=== PATIENT | male | born 1995 ===

== ENCOUNTER 2024-11-03 19:18 | Emergency (ER) | payer OTHER ==
[~2024-11-03] VITALS: Ht 188 cm; Wt 81.0 kg
[2024-11-03 19:27] VITALS: BP 149/104; PULSE 104; RESP 26; O2SAT 100
--- NOTE | 2024-11-03 20:51 | Physician Documentation ---
History of Present Illness ~ Chief Complaint: Anxiety Stated Complaint: SOB Time Seen by MD: 19:34 HPI Patient is seen today with complaints of significant anxiety. Patient states he ate some edible marijuana a couple of hours prior to arrival. Patient has no other concern or complaint at this time. Patient denies any chest pain or shortness of breath or abdominal pain or nausea, vomiting, diarrhea. Medication Reconciliation Allergies: Coded Allergies: No Known Allergies (Unverified , 11/03/24) Review of Systems Constitutional: Denies: chills, fever, weakness Eyes: Denies: pain, blurred vision ENT: Denies: ear pain, nose pain, throat pain, mouth pain Respiratory: Denies: cough, shortness of breath Cardiovascular: Denies: chest pain, palpitations Gastrointestinal: Denies: abdominal pain, nausea, vomiting Genitourinary: Denies: burning, dysuria Male Genitalia: Denies: penile discharge, testicular pain Neurological: Denies: headache, dizziness Musculoskeletal: Denies: pain, swelling Integumentary: Denies: rash, lesions Allergic/Immunologic: Denies: hives, itching Hematologic/Lymphatic: Denies: no symptoms reported Psychiatric: Denies: depression, anxiety Physical Exam Vital Signs: Heart Rate: 104, Respiratory Rate: 26, BP: 149/104, Pulse Oximetry: 100, Weight: 81.000 Physical Exam General: Awake and Alert, no acute distress. HEENT: Conjunctiva pink, Sclera clear, Mucus Membranes moist. Neck: Supple without masses and tenderness. Resp: Unlabored. Lungs clear to auscultation bilaterally. Heart: Regular Rate and rhythm, normal S1 and S2 without murmur, rub or gallop. Abdomen: Soft and non tender no organomegaly Extremities: No cyanosis,clubbing or edema. Skin: Warm and Dry. Progress Results/Orders Results/Orders Completed Orders - PORSCHE MEJIA Olanzapine Tablet (Zyprexa Tablet) (11/03/24 19:20) Medications Received in ER Medications (Trade) Dose Ordered Sig/Silke Route PRN Reason Start Time Stop Time Status Last Admin Dose Admin (ZyPREXA tablet) 10 mg ONCE STAT PO 11/03/24 19:20 11/03/24 19:21 DC 11/03/24 20:14 10 MG Vital Signs 11/03/24 19:27 Pulse 104 Resp 26 B/P (MAP) 149/104 Pulse Ox 100 Medical Decision Making Findings Patient is seen today with complaints of significant anxiety. Patient states he ate some edible marijuana a couple of hours prior to arrival. Patient has no other concern or complaint at this time. Patient denies any chest pain or shortness of breath or abdominal pain or nausea, vomiting, diarrhea. Patient was given Zyprexa 10 mg by mouth. Patient symptoms improved significantly. Patient will be discharged home and will follow up with primary care in 1-3 days if no better as needed sooner. Return to ED with any worsening, concerning or changing symptoms. Departure Disposition: HOME / SELF CARE / HOMELESS Impression: Primary Impression: Panic attack Condition: Improved Discharge Instructions: Panic Attack Additional Instructions: Patient was given Zyprexa 10 mg by mouth. Patient symptoms improved significantly. Patient will be discharged home and will follow up with primary care in 1-3 days if no better as needed sooner. Return to ED with any worsening, concerning or changing symptoms. Referrals: NO PRIMARY CARE PROVIDER (PCP) Signature Scribe Signature: No scribe Attestation: No scribe PORSCHE MEJIA PAC Nov 03, 2024 20:51
== END 2024-11-03 21:54 | disposition home or self-care (01) ==
LOC: ER 19:19
DX: F41.0 Panic disorder [episodic paroxysmal anxiety] (principal)
CPT/HCPCS: 99283